=== PATIENT | female | born 1970 | race Two or more races ===

== ENCOUNTER 2018-01-10 16:26 | Emergency (ER) | payer MEDICAID, OTHER, SELFPAY ==
[~2018-01-10] VITALS: Ht 157.5 cm; Wt 86.8 kg
[2018-01-10] MEDS ORDERED: SODIUM CHLORIDE FLUSH 10ML SYR IVF ONE (17:30)
[2018-01-10 17:41] LABS: BASOPHILS # (AUTO) 0.03 x10^3/uL (0-0.1); BASOPHILS % (AUTO) 0 % (0-1); EOSINOPHILS # (AUTO) 0.12 x10^3/uL (0-0.4); EOSINOPHILS % (AUTO) 1 % (1-7); LYMPHOCYTES # (AUTO) 1.05 x10^3/uL (1-3.4); LYMPHOCYTES % (AUTO) 10 % (22-44); MD NO; MEAN CORPUSCULAR HEMOGLOBIN 29.8 pg (27.0-34.8); MEAN CORPUSCULAR HGB CONC 33.9 g/dL (32.4-35.8); MEAN CORPUSCULAR VOLUME 87.7 fL (80-100); MEAN PLATELET VOLUME 8.9 fL (7.4-10.4); MONOCYTES # (AUTO) 0.94 x10^3/uL (0.2-0.8); MONOCYTES % (AUTO) 9 % (2-9); NEUTROPHILS # (AUTO) 8.19 x10^3/uL (1.8-6.8); NEUTROPHILS % (AUTO) 79 % (42-75); PLATELET COUNT 178 x10^3/uL (130-400); RED BLOOD COUNT 4.23 x10^6/uL (3.82-5.3); RED CELL DISTRIBUTION WIDTH 13.9 % (9.6-15.2)
[2018-01-10 17:51] LABS: ALBUMIN 3.4 g/dL (3.4-5.0); ANION GAP 8 mmol/L (5-15); CALCIUM 8.1 mg/dL (8.5-10.1); CHLORIDE 104 mmol/L (98-107); CREATININE 0.82 mg/dL (0.55-1.02)
[2018-01-10 17:58] LABS: MICROSCOPIC INDICATED
[2018-01-10 18:04] LABS: CULTURE INDICATED? NO
[2018-01-10 19:48] VITALS: BP 107/68
== END 2018-01-10 19:51 | disposition home or self-care (01) ==
LOC: ED 17:52
DX: K85.00 Idiopathic acute pancreatitis without necrosis or infection (principal); R10.12 Left upper quadrant pain
CPT/HCPCS: 36415; 74176; 80048; 81001; 82040; 83690; 85025; 99285